=== PATIENT | male | born 1965 | race American Indian/Alaskan Native ===

== ENCOUNTER 2017-10-13 06:26 | Day surgery (SDC) | payer MEDICARE, OTHER ==
[2015-05-28 07:38] VITALS: BMI 43.4
[2017-10-13] MEDS ORDERED: MethylPREDNISolone Depo 40 mg/ml Inj ONE (07:21)
[2017-10-13] MEDS ORDERED: Iohexol 240 (50 ml) ONE (07:21)
[2017-10-13] MEDS ORDERED: Bupivacaine HCl 0.25% PF (30 ml) Inj ONE (08:02)
[2017-10-13] MEDS ORDERED: Lidocaine Hydrochloride 0 ML INJ ONE (08:29)
[2017-10-13] MEDS ORDERED: Naloxone 0.4 mg/ml Inj (Adult) ONE (08:29)
[2017-10-13] MEDS ORDERED: Midazolam 2 MG/2 ML VIAL ONE ×2 (08:29→08:37)
[2017-10-13] MEDS ORDERED: Etomidate 20 mg/10ml Inj IV ONE (08:32)
[2017-10-13] MEDS ORDERED: Flumazenil 0.1 mg/ml Inj (5ml) IVP ONE (08:42)
[2017-10-13 09:14] VITALS: RESP 15
[2017-10-13 13:33] VITALS: BP 141/84; PULSE 73; TEMP 97.8; O2SAT 100
--- NOTE | 2017-10-13 16:06 | OP ---
PROCEDURE DATE: PREOPERATIVE DIAGNOSES: Complex regional pain syndrome, lower extremity pain. POSTOPERATIVE DIAGNOSES: Complex regional pain syndrome, lower extremity pain. PROCEDURE: Lumbar sympathetic nerve block, right L3. X-RAY: Fluoroscopy guidance of the spine. TYPE OF ANESTHESIA: MAC with local sedation. SURGEON: Maykel Mott MD ESTIMATED BLOOD LOSS: Minimal, 1 mL. COMPLICATIONS: None. INDICATIONS: On physical exam, the patient has pain in the lower extremities with alternating bouts of swelling and burning. The patient's pain is intractable and unresponsive to conservative management. It has persisted more than a year. The pain is adversely affecting quality of life and activities of daily living. TECHNIQUE: After comprehensive informed consent was obtained, the risks of the procedure were explained and questions answered. The patient was placed in prone position on the operating table in a comfortable position. Confirmation of the procedure to be performed was obtained from the patient. The skin overlying the area to be injected was confirmed and cleansed in a strict sterile fashion using chlorhexidine prep. The dye level was identified and the C-arm was rotated ipsilateral oblique to fluoroscopic image. Sterile drapes were placed around the area to be injected. The area to be injected was superficially anesthetized with 1 mL of 1% lidocaine using a 25-gauge, 0.25-inch needle at the L3 level noted above. Under fluoroscopic guidance, a curved 22-gauge 8-inch spinal needle was advanced until the tip of the needle was at the anterolateral surface of the vertebral body at L3. The bone was contacted and the C-arm was rotated laterally to confirm proper needle placement. The patient experienced no paresthesia in the lower extremity during needle placement. After negative aspiration of blood, 1 mL of non-ionic contrast was injected to outline tract. Subsequently 5 mL of 0.25% Marcaine mixed with 40 mg of Depo-Medrol was slowly injected with negative aspiration of any heme or CSF. Needle was removed, and a Band-Aid was placed over the puncture site. The fluoroscopic image was stored for the medical record. ASSESSMENT: Upon discharge, the patient noted more than 80% relief in the affected painful area. The patient was given a pain diary to utilize over the next 4 hours while performing activities that are normally aggravating. The patient will follow up in less than 2 weeks. Maykel Mott MD
--- NOTE | 2017-10-13 16:24 | RAD ---
PROCEDURE: Intraoperative Fluoroscopy. HISTORY: Complex regional pain syndrome FINDINGS: Fluoroscopic assistance was provided for L3 lumbar sympathetic nerve block. Please refer to the operative report from GERARD Wooten.
== END 2017-10-13 09:59 | disposition home or self-care (01) ==
LOC: C.SDS 06:26
PROVIDERS: ATTEND Anesthesiology Pain Medicine
DX: G90.529 Complex regional pain syndrome I of unspecified lower limb (principal)
CPT/HCPCS: 64520; 82948; J1030; J2001; J2250; J2765; J3010; Q9966